=== PATIENT | male | born 1960 | race Caucasian/White ===

== ENCOUNTER → 2018-03-01 | Outpatient (CLI) | payer OTHER ==
[~2018-03-01] MED LIST: CONTRAST GIVEN. MC PRN; IOHEXOL 240 MG/ML 50ML VIAL. PO ONE; IOHEXOL 300 MG/ML 100ML VIAL. IV ONE; SITA1TAB7 PO
--- NOTE | 2018-03-01 17:40 | KCIC ---
CT CHEST ABD PELVIS W/CONTRAST Indication: Renal cell carcinoma, left nephrectomy Technique: Postcontrast CT imaging was performed of the chest, abdomen, pelvis, multiplanar reconstruction images submitted. Oral contrast was given. One or more of the following individualized dose reduction techniques were utilized for this examination: 1. Automated exposure control 2. Adjustment of the mA and/or kV according to patient size 3. Use of iterative reconstruction technique. Comparison: None available CHEST: Findings: There is mild motion degradation. Major airways are patent. There is no pleural or pericardial effusion, pneumothorax, infiltrate, suspicious pulmonary nodularity. No significantly enlarged nodes are identified of the chest. There is no abnormality thyroid gland. No bony destructive lesion is identified. IMPRESSION: 1. There is no evidence of metastatic disease to the chest. Abdomen pelvis: FINDINGS: There is diffuse hepatic steatosis. There has been cholecystectomy. No focal abnormality is identified of the spleen or the pancreas. There has been left nephrectomy, no discrete mass identified of the left renal fossa. Right kidney enhances, no hydronephrosis or mass identified. There is no right adrenal nodularity. There are some small scattered retroperitoneal nodes, largest about 0.6 cm short axis dimension. There are also some small mesenteric nodes with the largest about 0.5 cm short axis dimension. Bowel is not dilated. Normal appendix is visualized. There is no free air or free fluid. There is mild dextroscoliosis of the lumbar spine. There is vacuum disc disease L5-S1. No focal bony destructive lesion is identified. There is facet degenerative change of the lumbar spine. There are some fused osteophytes of the sacroiliac joints bilaterally. IMPRESSION: 1. There has been left nephrectomy, no evidence of mass at left renal fossa. There is no significant lymphadenopathy, small scattered nonspecific nodes present. 2. There is hepatic steatosis. Electronically signed by: Reggie Templeton MD (03/01/2018 5:36 PM) [id number]
== END | disposition home or self-care (01) ==
LOC: KCIC CT 11:57
PROVIDERS: ATTEND Family Medicine
DX: Z08 Encounter for follow-up examination after completed treatment for malignant neoplasm (principal); K76.0 Fatty (change of) liver, not elsewhere classified; M51.27 Other intervertebral disc displacement, lumbosacral region; M25.78 Osteophyte, vertebrae; Z90.49 Acquired absence of other specified parts of digestive tract; Z85.528 Personal history of other malignant neoplasm of kidney; Z90.5 Acquired absence of kidney
CPT/HCPCS: 71260; 74177; Q9966; Q9967; 82565

== ENCOUNTER → 2018-12-16 | Outpatient (CLI) | payer OTHER ==
--- NOTE | 2018-12-16 17:05 | KCIC ---
CT ABD PELV W/ORAL IV CONTRAST Indication: Renal cell cancer. Left nephrectomy, cholecystectomy. Exposure: One or more of the following individualized dose reduction techniques were utilized for this examination: 1. Automated exposure control 2. Adjustment of the mA and/or kV according to patient size 3. Use of iterative reconstruction technique. Technique: Intravenous contrast was given. No oral contrast per request. COMPARISON: 03/01/2018. FINDINGS: Lung bases are clear. Liver hypodensity compatible with steatosis. Spleen enlarged at 14.5 cm, as compared with 13.5 cm on prior study. Pancreas unremarkable. No no evidence of right adrenal mass. Right kidney demonstrates homogeneous enhancement without mass or hydronephrosis. There has been a left nephrectomy. Left adrenal gland is not seen. No evidence of mass lesion in the left renal fossa. Gallbladder surgically absent. Aorta is nonaneurysmal. Mild aortic calcification. Small periportal lymph node adjacent to the pancreatic head is stable in size measuring 14 mm short axis. Small aortocaval lymph nodes are stable in size measuring up to 8 mm in short axis. Small mesenteric lymph nodes are seen without pathologic enlargement. No significant small bowel distention. No evidence of acute colitis. Appendix appears normal. No evidence of ascites or pneumoperitoneum. The urinary bladder appears unremarkable. Degenerative spondylosis. Appearance and alignment are similar to the prior study. No aggressive bone destruction. IMPRESSION: 1. Post left nephrectomy. 2. Mild splenomegaly, measures slightly greater than on prior study although could possibly just be due to technique difference given the subtle difference. 3. Stable small nonspecific lymph nodes. 4. Hepatic steatosis. Electronically signed by: Trev Gamboa MD (12/16/2018 5:02 PM) [id number]
== END | disposition home or self-care (01) ==
LOC: KCIC CT 12:26
PROVIDERS: ATTEND Family Medicine
DX: Z85.528 Personal history of other malignant neoplasm of kidney (principal); R16.1 Splenomegaly, not elsewhere classified; K76.0 Fatty (change of) liver, not elsewhere classified; M47.899 Other spondylosis, site unspecified; I70.0 Atherosclerosis of aorta; I10 Essential (primary) hypertension; E11.9 Type 2 diabetes mellitus without complications; F17.200 Nicotine dependence, unspecified, uncomplicated; Z90.49 Acquired absence of other specified parts of digestive tract; Z90.5 Acquired absence of kidney
CPT/HCPCS: 74177; Q9966; Q9967